=== PATIENT | female | born 1990 | race Caucasian/White ===

== ENCOUNTER 2022-04-17 07:22 | Inpatient (IN) | payer BC ==
[2022-04-17] MEDS ORDERED: Labetalol 100 MG/20 ML MDV IVPUSH ONE (07:48)
[2022-04-17] MEDS ORDERED: Sodium Chloride 0.9% 20 ML SDV IV PRN (07:49)
[2022-04-17] MEDS ORDERED: Water For Irrigation,Sterile 1,000 ML Container IRR PRN (07:49)
[2022-04-17] MEDS ORDERED: Sodium Chloride 0.9% 10 ML Syringe FLUSH PRN (07:49)
[2022-04-17] MEDS ORDERED: Lidocaine 1% 50 ML MDV INJECT PRN (07:49)
[2022-04-17] MEDS ORDERED: Tranexamic Acid 1,000 MG in Sodium Chloride 0.9% 100 ML IV PRN (07:49)
[2022-04-17] MEDS ORDERED: Sodium Chloride 0.9% 2.5 ML Syringe FLUSH PRN (07:49)
[2022-04-17] MEDS ORDERED: Misoprostol 200 MCG Tab PO PRN (07:49)
[2022-04-17] MEDS ORDERED: Carboprost Tromethamine 250 MCG/1 ML Amp IM PRN (07:49)
[2022-04-17] MEDS ORDERED: Butorphanol 1 MG/ML SDV IVPUSH PRN (07:49)
[2022-04-17] MEDS ORDERED: Methylergonovine 0.2 MG/1 ML Amp IM PRN (07:49)
[2022-04-17] MEDS ORDERED: Oxytocin/0.9 % Sodium Chloride 30 UNIT/500 ML BAG IV SCH (08:00)
[2022-04-17] MEDS: Lactated Ringers 1,000 ML IV SCH ×2 (08:10→09:11)
[2022-04-17] MEDS ORDERED: Labetalol 100 MG/20 ML MDV ONE (08:11)
[2022-04-17] MEDS ORDERED: Ropivacaine in NACL,ISO-OSM/PF 400 ML ONE (08:22)
[2022-04-17] MEDS ORDERED: ePHEDrine 50 MG/ML SDV IVPUSH PRN ×2 (08:34)
[2022-04-17] MEDS ORDERED: Ropivacaine in NACL,ISO-OSM/PF 800 MG in Premix Bag 1 BAG EPIDUR SCH ×2 (08:45)
[2022-04-17 09:12] LABS: BLOOD UREA NITROGEN,BUN 8 mg/dL (7.0-18.0); CARBON DIOXIDE,CO2 22.4 mmol/L (21.0-32.0); CHLORIDE,CL 103 mmol/L (98-107); GLUCOSE RANDOM 94 mg/dL (74-106); POTASSIUM,K 4.3 mmol/L (3.5-5.1); SODIUM,NA 137 mmol/L (136-145)
[2022-04-17] MEDS ORDERED: Witch Hazel Medicated Pads 40/Jar TOP PRN (17:12)
[2022-04-17] MEDS ORDERED: Ibuprofen 400 MG Tab PO PRN (17:12)
[2022-04-17] MEDS ORDERED: Bisacodyl 10 MG Supp RECTAL PRN (17:12)
[2022-04-17] MEDS ORDERED: Acetaminophen 500 MG Tab PO PRN ×2 (17:12)
[2022-04-17] MEDS ORDERED: Lanolin 100% Cream 7 GM Tube TOP PRN (17:12)
[2022-04-17] MEDS ORDERED: Benzocaine/Menthol 20%-0.5% Spray 78 GM Cannister TOP PRN (17:12)
[2022-04-17] MEDS ORDERED: Docusate Sodium 100 MG Cap PO PRN (17:12)
[2022-04-17] MEDS ORDERED: oxyCODONE 5 MG Tab PO PRN (17:12)
[2022-04-17] MEDS: Ibuprofen 800 MG Tab PO PRN (20:26)
[2022-04-18] MEDS: Ibuprofen 800 MG Tab PO PRN (08:36)
== END 2022-04-18 19:41 | disposition home or self-care (01) | DRG 560 ==
LOC: MW.OBCHECK 07:22 → MW.OB 07:23 → MW.OBCHECK 07:49 → OBSVTOIN 16:41 → MW.OB 20:42
PROVIDERS: ADMIT Obstetrics & Gynecology; ATTEND Obstetrics & Gynecology
PROC: 10E0XZZ Delivery of Products of Conception, External Approach (ICD-10-PCS; principal; 2022-04-17)
PROC: 3E0R3BZ Introduction of Anesthetic Agent into Spinal Canal, Percutaneous Approach (ICD-10-PCS; 2022-04-17)
DX: O80 Encounter for full-term uncomplicated delivery (principal); Z3A.39 39 weeks gestation of pregnancy; Z37.0 Single live birth; Z88.1 Allergy status to other antibiotic agents; Z88.2 Allergy status to sulfonamides; Z20.822 Contact with and (suspected) exposure to COVID-19
CPT/HCPCS: 36415; 51702; 59025; 59409; 80053; 82570; 82803; 84112; 84156; 84550; 85014; 85018; 85027; 86592; 86850; 86900; 86901; A9270-GY; J2590; J2795; J3490; J7120; U0002

== ENCOUNTER 2024-08-08 10:55 | Inpatient (IN) | payer BC ==
[2024-08-08] MEDS: Lactated Ringers 1,000 ML IV SCH (11:40)
[2024-08-08] MEDS ORDERED: dexmedeTOMIDine HCl 200 MCG/2 ML SDV ONE (12:07)
[2024-08-08] MEDS ORDERED: fentaNYL 100 MCG/2 ML SDV ONE (12:07)
[2024-08-08] MEDS ORDERED: Phenylephrine HCl In 0.9% NaCl 1 MG/10 ML Syringe ONE (12:07)
[2024-08-08] MEDS: Ropivacaine HCl/PF 200 ML ONE (12:08)
[2024-08-08] MEDS ORDERED: Lidocaine 1% 50 ML MDV INJECT PRN (12:13)
[2024-08-08] MEDS ORDERED: Misoprostol 200 MCG Tab PO PRN (12:13)
[2024-08-08] MEDS ORDERED: Sodium Chloride 0.9% 20 ML SDV IV PRN (12:13)
[2024-08-08] MEDS ORDERED: Sodium Chloride 0.9% 2.5 ML Syringe FLUSH PRN (12:13)
[2024-08-08] MEDS ORDERED: Carboprost Tromethamine 250 MCG/1 mL Vial IM PRN (12:13)
[2024-08-08] MEDS ORDERED: Water For Irrigation,Sterile 1,000 ML Container IRR PRN (12:13)
[2024-08-08] MEDS ORDERED: Tranexamic Acid IN NACL,ISO-OS 1,000 MG in Premix Bag 1 BAG IV PRN ×2 (12:13→14:25)
[2024-08-08] MEDS ORDERED: Sodium Chloride 0.9% 10 ML Syringe FLUSH PRN (12:13)
[2024-08-08] MEDS ORDERED: Butorphanol 2 MG/ML SDV IVPUSH PRN (12:13)
[2024-08-08] MEDS ORDERED: Methylergonovine 0.2 MG/1 ML Amp IM PRN ×2 (12:13→14:25)
[2024-08-08 12:21] LABS: HEMATOCRIT 40.8 % (37.0-47.0); HEMOGLOBIN 13.5 g/dL (12.0-16.0); MEAN CORPUSCULAR HEMOGLOBIN 28.6 pg (28.0-32.0); MEAN CORPUSCULAR HGB CONC 33.1 g/dL (32.0-36.0); MEAN CORPUSCULAR VOLUME 86.4 fL (83.0-99.0); MEAN PLATELET VOLUME 10.1 fL (9.4-12.3); PLATELET COUNT,PLT 355 K/uL (150-400); RED BLOOD CELL COUNT 4.72 M/uL (4.10-5.30); WHITE BLOOD CELL COUNT,WBC 9.55 K/uL (3.9-11.3)
[2024-08-08] MEDS: Oxytocin/0.9 % Sodium Chloride 30 UNIT/500 ML BAG IV SCH (14:05)
[2024-08-08] MEDS ORDERED: Docusate Sodium 100 MG Cap PO PRN (14:25)
[2024-08-08 14:44] LABS: PH,UMBILICAL ARTERIAL 7.237 (7.18-7.38)
[2024-08-08 14:45] LABS: PH,UMBILICAL VENOUS 7.299 (7.25-7.45)
[2024-08-08] MEDS: Witch Hazel Medicated Pads 40/Jar TOP PRN (18:28)
[2024-08-08] MEDS: Benzocaine/Menthol 20%-0.5% Spray 78 GM Cannister TOP PRN (18:28)
[2024-08-08] MEDS: Lanolin 100% Cream 7 GM Tube TOP PRN (18:29)
[2024-08-08] MEDS: Ibuprofen 800 MG Tab PO PRN (20:49)
[2024-08-09] MEDS: Acetaminophen 500 MG Tab PO PRN (02:07)
[2024-08-09 07:03] LABS: CALCIUM 8.6 mg/dL (8.5-10.1); CARBON DIOXIDE,CO2 25.6 mmol/L (21.0-32.0); CREATININE 0.9 mg/dL (0.6-1.0); EST CRCL DRUG DOSING (CG) 82.45 mL/min; POTASSIUM,K 3.9 mmol/L (3.5-5.1)
== END 2024-08-09 17:00 | disposition home or self-care (01) | DRG 560 ==
LOC: MW.OBCHECK 10:55 → MW.OB 10:56 → MW.OBCHECK 12:12 → MW.OB 12:31 → OBSVTOIN 14:25 → MW.OB 21:04
PROVIDERS: ADMIT Obstetrics & Gynecology; ATTEND Obstetrics & Gynecology
PROC: 10E0XZZ Delivery of Products of Conception, External Approach (ICD-10-PCS; principal; 2024-08-08)
PROC: 3E0R3BZ Introduction of Anesthetic Agent into Spinal Canal, Percutaneous Approach (ICD-10-PCS; 2024-08-08)
PROC: 00HU33Z Insertion of Infusion Device into Spinal Canal, Percutaneous Approach (ICD-10-PCS; 2024-08-08)
DX: O24.410 Gestational diabetes mellitus in pregnancy, diet controlled (principal); Z37.0 Single live birth; Z3A.38 38 weeks gestation of pregnancy; O76 Abnormality in fetal heart rate and rhythm complicating labor and delivery
CPT/HCPCS: 36415; 59025; 59409; 80048; 82803; 85014; 85018; 85027; 86156; 86592; 86850; 86900; 86901; 86922; A9270-GY; J2590; J2795; J3010; J3490; J7120